=== PATIENT | female | born 1940 | race African-American/Black ===

== ENCOUNTER 2022-03-06 07:25 | Day surgery (SDC) | payer OTHER ==
[2022-03-04 15:11] VITALS: BMI 24.1
[2022-03-06] MEDS: CIPROFLOXACIN 0.3% EYE DROPS 5 ML BOTTLE ONE ×3 (08:00→08:10)
[2022-03-06] MEDS: CYCLOPENTOLATE 2% OPHTH SOLN 2 ML BOTTLE ONE ×3 (08:00→08:10)
[2022-03-06] MEDS: TROPICAMIDE 1% OPHTH SOLN 15 ML BOTTLE ONE ×3 (08:00→08:10)
[2022-03-06] MEDS: PHENYLEPHRINE 2.5% OPHTH SOLN 15 ML BOTTLE ONE ×3 (08:00→08:10)
[2022-03-06] MEDS ORDERED: LIDOCAINE 1% P/F 10 MG/ML VIAL ONE (08:36)
[2022-03-06] MEDS ORDERED: CARBACHOL 0.01% INTRA-OCULAR 1.5 ML VIAL ONE (08:37)
[2022-03-06] MEDS ORDERED: BSS (NA/CA/MG/K) BALANCED SALT SOLUTION OPHTH SOLN 15 ML BOTTLE ONE (08:37)
[2022-03-06] MEDS ORDERED: TETRACAINE 0.5% OPHTH SOLN 2 ML BOTTLE ONE (08:37)
[2022-03-06] MEDS ORDERED: NEO/POLYMYX B SULF/DEXAMETH OPHTHALMIC 5ML BOTTLE ONE (08:37)
[2022-03-06] MEDS ORDERED: MIDAZOLAM HCL 2 MG/2 ML SINGLE DOSE VIAL ONE ×2 (08:42→08:51)
[2022-03-06 09:31] VITALS: TEMP 97.8
[2022-03-06 09:36] VITALS: BP 124/64; PULSE 77
== END 2022-03-06 09:50 | disposition home or self-care (01) ==
LOC: FASU 07:25
PROVIDERS: ATTEND Ophthalmology
PROC: 08RJ3JZ Replacement of Right Lens with Synthetic Substitute, Percutaneous Approach (ICD-10-PCS; principal; 2022-03-06 08:52)
DX: H26.8 Other specified cataract (principal)
CPT/HCPCS: 66984; V2632